=== PATIENT | female | born 1935 | race Caucasian/White ===

== ENCOUNTER 2018-02-09 12:16 | Outpatient (CLI) | payer MEDICARE, OTHER ==
--- NOTE | 2018-02-09 15:35 | MRI ---
MRI CERVICAL SPINE: HISTORY: Bilateral arm pain. FINDINGS: Multiplanar, multisequence noncontrast-enhanced MRI images of the cervical spine obtained. Images demonstrate the spinal cord to be unremarkable with no evidence of cord masses or lesions. C1-2: Unremarkable. C2-3: There is a small central disk bulge resulting in mild compression of the thecal sac. The neur al foramen are patent. C3-4: Unremarkable. C4-5: Mild disk desiccation is seen. There is a broad-based disk-osteophyte complex resulting in mi nimal but not significant compression of the thecal sac. Mild bilateral C4-5 neural foraminal narrow ing is seen due to uncovertebral osteophyte hypertrophy. C5-6: Thee is a broad-based disk-osteophyte complex resulting mild compression of the thecal sac. T here is moderate bilateral C5-6 neural foraminal narrowing due to uncovertebral osteophyte hypertroph y. C6-7: disk desiccation is seen. There is a broad-based disk-osteophyte complex centrally compressin g the thecal sac resulting in mild compression of the thecal sac. No evidence of cord compression is seen. Moderate left and mild right-sided C6-7 neural foraminal narrowing is seen due to uncovertebr al osteophyte hypertrophy. C7-T1: There is a mild broad-based disk bulge. No significant degree of central stenosis seen. The neural foramen are patent. IMPRESSION: Multilevel disk-osteophyte complexes centrally with some compression of the thecal sac. Some neural foraminal narrowing is also seen as described above. POS: [facility]
== END 2018-02-09 12:17 | disposition home or self-care (01) ==
LOC: MRI 12:16
PROVIDERS: ATTEND Orthopaedic Surgery
DX: M54.12 Radiculopathy, cervical region (principal); M99.81 Other biomechanical lesions of cervical region; M25.78 Osteophyte, vertebrae
CPT/HCPCS: 72141

== ENCOUNTER 2018-02-16 11:14 | Emergency (ER) | payer MEDICARE ==
--- NOTE | 2018-02-16 13:57 | ULT ---
ULTRASOUND DOPPLER DUPLEX VENOUS RIGHT UPPER EXTREMITY: DATE: 02-16-18 History: 82-year-old female with pain and swelling of right upper extremity and right neck for three weeks. Technique: Grayscale, color flow, and spectral analysis of major veins of the right upper extremity. Compression applied to all interrogated veins, except for the subclavian. FINDINGS: There is demonstration of blood flow, in the right internal jugular, subclavian, axillary, basilic, c ephalic, brachial, radial, and ulnar veins. IMPRESSION: Negative. No deep vein thrombosis in the right upper extremity. POS: [facility]
== END 2018-02-16 13:39 | disposition home or self-care (01) ==
LOC: ERS 11:14
DX: M19.041 Primary osteoarthritis, right hand (principal); Z87.891 Personal history of nicotine dependence

== ENCOUNTER 2018-03-05 15:08 | Emergency (ER) | payer MEDICARE, OTHER ==
[2018-03-05] MEDS ORDERED: traMADol HCl 50 MG TAB ONE (16:38)
== END 2018-03-05 16:57 | disposition home or self-care (01) ==
LOC: EDBD 15:08 → ERS 15:08
DX: M79.89 Other specified soft tissue disorders (principal); M54.12 Radiculopathy, cervical region
CPT/HCPCS: 99283

== ENCOUNTER 2018-03-11 10:54 | Emergency (ER) | payer MEDICARE ==
[~2018-03-11 10:54] MED LIST: ISOVUE-370 76%-LOCM 1 ML ONE
[2018-03-11] MEDS ORDERED: Fentanyl 100 MCG/2 ML VIAL ONE ×2 (13:34→15:50)
--- NOTE | 2018-03-11 13:40 | RAD ---
CHEST 1 VIEW: HISTORY: Fluid overload. COMPARISON: Chest radiograph of 03/20/2017. FINDINGS: Heart size is mildly enlarged. No pneumothorax. No effusion. No acute osseous abnormality. Low-grade levoscoliosis lumbar spine. IMPRESSION: Chronic findings. No acute intrathoracic abnormality. POS: [facility]
[2018-03-11 14:01] LABS: #Eosinphils 0.1 thou/uL (0.0-0.7); #Lymphocytes 1.4 thou/uL (1.20-3.40); #Monocytes 0.8 thou/uL (0.11-0.59); #Neutrophils 7.2 thou/uL (1.40-6.50); %Basophils 0.4 % (0.0-1.0); %Eosinophils 0.8 % (0.0-10.0); %Lymphocytes 14.7 % (21.0-51.0); %Monocytes 8.8 % (0.0-10.0); %Neutrophils 75.3 % (42.0-75.0); Hemoglobin 10.6 g/dL (12.0-16.0); Mean Corpuscular HGB CONC 32.9 g/dL (32.0-36.0); Mean Corpuscular Hemoglobin 32.1 pg (27.0-31.0); Mean Corpuscular Volume 97.5 fL (78.0-98.0); Mean Platelet Volume 6.6 fL (7.4-10.4); Platelet Count 439 thou/uL (130-400); RBC Distribution Width 11.1 % (11.5-14.5); White Blood Cell (WBC) Count 9.5 thou/uL (4.8-10.8)
[2018-03-11 14:05] LABS: Bilirubin Negative (Negative); Blood, Urine Small (Negative); Clarity CLEAR (Clear); Glucose, Urine (Dipstick) Negative (Negative); Leukocyte Negative (Negative); Nitrite Negative (Negative); Protein, Urine (Dipstick) Negative (Neg-Trace); Urobilinogen 0.2 mg/dL (0.2-1.0)
[2018-03-11 14:07] LABS: Bacteria/HPF None Seen HPF (None Seen); Hyaline Casts/LPF 0-3 HYALINE CAST LPF (0-3 Hyaline); Squamous Epithelial 0-3 HPF (0-3); WBC/HPF 0-3 HPF (0-3)
[2018-03-11 14:27] LABS: ALT (SGPT) 8 U/L (8-55); AST (SGOT) 13 U/L (5-34); Albumin 3.8 g/dL (3.4-4.8); Alkaline Phosphatase 59 U/L (40-150); Anion Gap 15 mmol/L (10-20); BUN (Urea Nitrogen) 11 mg/dL (9.8-20.1); Bilirubin, Total 0.4 mg/dL (0.2-1.2); CK (CPK) 47 U/L (29-168); Calc. Creatinine Clearance 0 mL/min (70-130); Calcium 9.4 mg/dL (7.8-10.44); Carbon Dioxide 25 mmol/L (23-31); Chloride 99 mmol/L (98-107); Estimated GFR-MDRD Greater than 90; Glucose 121 mg/dL (83-110); Lipase 14 U/L (8-78); Protein, Total 6.8 g/dL (6.0-8.3); Sodium 135 mmol/L (136-145)
[2018-03-11 14:31] LABS: Troponin I Less than 0.010 ng/mL (< 0.028)
--- NOTE | 2018-03-11 15:28 | CT ---
CT ANGIOGRAM CHEST WITH CONTRAST PE PROTOCOL: HISTORY: Chest pain. COMPARISON: Radiograph same day. FINDINGS: CT angiogram chest performed after the intravenous administration of contrast. Three-D rendering is provided. Heart size is at the upper limits of normal. No aneurysmal dilatation of the aorta. There is mild f ocal ectasia of the transverse aorta. Celiac trunk and superior mesenteric arteries are both patent. No proximal segmental pulmonary arter ial filling defect given the limitation of motion artifact. Mild atelectatic changes in the lung bases. No focal airspace consolidation, pneumothorax, or effusion. Multiple calcified granulomas of the spl een. No acute displaced rib fracture. IMPRESSION: No proximal segmental pulmonary arterial filling defect. No acute inflammatory process in the chest. POS: [facility]
[2018-03-11] MEDS ORDERED: Dexamethasone 4 mg/ml Vial ONE (15:53)
== END 2018-03-11 16:39 | disposition home or self-care (01) ==
LOC: ERS 10:54 → EDBD 10:54 → ERS 16:39
DX: M54.12 Radiculopathy, cervical region (principal); M79.89 Other specified soft tissue disorders; Z87.891 Personal history of nicotine dependence
CPT/HCPCS: 71045; 71275; 80053; 81003; 81015; 82550; 82553; 83690; 83880; 84484; 85025; 85379; 93005; 96374; 96375; 96376; J1100; J3010